=== PATIENT | male | born 1950 | race Caucasian/White ===

== ENCOUNTER 2016-12-23 18:03 | Emergency (ER) | payer OTHER ==
[2016-12-23 18:11] VITALS: BP 139/79; PULSE 114; RESP 22; TEMP 97.3; O2SAT 93
[2016-12-23] MEDS ORDERED: OXYMETAZOLINE 30 ML NASAL SPRAY ONE (18:15)
--- NOTE | 2016-12-23 18:27 | EDPHY ---
[id number] ILLNESS: 66-year-old male with a history of hereditary hemorrhagic telangiectasia presents with epistaxis for an hour and a half. He believes it started in his right naris but he has a deviated septum so there is blood in both nares. History of prior epistaxis, usually originating from the left naris. Previously treated with cautery +/- packing. The bleeding has currently stopped after using Afrin and placing a nasal clip. He denies lightheadedness, dizziness, or other complaints. REVIEW OF SYSTEMS: A complete 10-point review of systems was performed and is negative except for those items mentioned in the HPI. Past Medical/Surgical History: HHT. Social History: Nonsmoker. Smoking Status: Never smoked Physical Exam: General Appearance: Alert, pleasant and talkative Eyes: Pupils equal and round, no conjunctival pallor ENT, Mouth: Large nasal septal defect. Blood is present in both nares but there is no active bleeding. No blood in the posterior pharynx Neck: Normal inspection Respiratory: Lungs are clear to auscultation Cardiovascular: Regular rate and rhythm Gastrointestinal: Abdomen is soft and non- tender Neurological: A&O, nonfocal, normal gait Skin: Warm and dry Extremities: Normal inspection Psychiatric: Mood and affect normal Constitutional: Initial Vital Signs Temperature (C) 36.3 C 12/23/16 18:08 Heart Rate 114 H 12/23/16 18:08 Respiratory Rate 22 H 12/23/16 18:08 Blood Pressure 139/79 H 12/23/16 18:08 O2 Sat (%) 93 12/23/16 18:08 O2 Delivery Mode Room Air Allergies/Adverse Reactions: Sulfa (Sulfonamide Antibiotics) Allergy (Unknown, Verified 12/23/16 18:05) Rash SHRIMP Allergy (Severe, Uncoded 09/11/10 16:40) SWELLING; DIFFICULTY BREATHING Home Medications: Medication Instructions Recorded Lexapro 10 MG 03/06/15 Lisinopril 03/06/15 Medical Decision Making ED Course/Re-evaluation: The blood clots were cleared from the patient's nose by the patient blowing his nose. On my initial examination using nasal speculum, there was no active bleeding seen. I observed the patient in the emergency department for over 30 minutes and he had no recurrent bleeding. Given there was no source of bleeding found and he has no active bleeding, I will not pack his nose this evening. If the nosebleed recurs, he will use Afrin and then placed a nasal clip. If the bleeding persists he will return to the emergency department. Departure - Departure Disposition: Home, Routine, Self-Care Clinical Impression: Epistaxis Condition: Good Instructions: Nosebleed (ED) Additional Instructions: Follow up with Dr. Vivas for continued nosebleed concerns. Return to the emergency department for any serious worsening of condition. Referrals: Stanislav Vivas MD [Medical Doctor] - As per Instructions Report Scribed for: Marian Ocasio Report Scribed by: Jackson Mariscal Date of Report: 12/23/16 Time of Report: 18:53 Physician Review and Approval Statement: 12/23/16 18:54 Portions of this note were transcribed by a medical radiation tech. I personally performed a history, physical exam, medical decision making, and confirmed accuracy of information the transcribed note.
== END 2016-12-23 20:10 | disposition home or self-care (01) ==
DX: R04.0 Epistaxis (principal)

== ENCOUNTER 2017-03-30 20:51 | Emergency (ER) | payer OTHER ==
[2017-03-30 21:01] VITALS: TEMP 98.1
[2017-03-30] MEDS ORDERED: OXYMETAZOLINE 30 ML NASAL SPRAY ONE (21:42)
[2017-03-30] MEDS ORDERED: COCAINE HCL 4% 4 ML BTL TP ONE ×2 (21:42→21:49)
[2017-03-30] MEDS ORDERED: OXYMETAZOLINE 30 ML NASAL SPRAY EACHNARE ONE (21:49)
--- NOTE | 2017-03-30 22:50 | EDPHY ---
H & P Time Seen by Provider: 03/30/17 21:29 HPI/ROS: Chief complaint. Nose bleed HPI. 66-year-old male with history of hereditary hemorrhagic telangiectasia presents with nosebleed that began about 1 hour prior to arrival. Initially right side but with pressures bleeding out of the left side. He apparently has a perforated septum. He has not had any trauma. He has been bothered by allergies the last few days. Otherwise not sick. He scheduled for sclerotherapy by ENT in the next few weeks. He has had prior epistaxis. ROS Constitutional. no fever/chills, no weakness Eyes. no problems with vision ENT. Nose bleed Cardiovascular. no chest pain Respiratory. no shortness of breath, no cough Abdominal. no abdominal pain, no nausea/vomiting, no diarrhea . no problems urinating MS. no calf pain/swelling, no neck/back pain, no joint pain Skin. no rash Lymph. no swollen glands Neuro. no headache, no dizziness, no difficulty walking or with speech Past Medical/Surgical History: Hereditary hemorrhagic telangiectasia, hypertension, anxiety, angina Social History: , nonsmoker, no alcohol Smoking Status: Never smoked Physical Exam: General Appearance: Alert well-developed male moderate distress active nose bleed Eyes: Pupils equal and round no pallor or injection. ENT, blood in the posterior pharynx. Blood from both nares ease seems to be somewhat more on the right. Respiratory: There are no retractions, lungs are clear to auscultation. Cardiovascular: Regular rate and rhythm. Gastrointestinal: Abdomen is soft and nontender, no masses, bowel sounds normal. Neurological: Awake and alert, sensory and motor exams grossly normal. Skin: Warm and dry, no rashes. Musculoskeletal: Neck is supple nontender. Extremities symmetrical, full range of motion. Psychiatric: Patient is oriented X 3, there is no agitation. Constitutional: Initial Vital Signs Temperature (C) 36.7 C 03/30/17 20:59 Heart Rate 71 03/30/17 20:59 Respiratory Rate 20 03/30/17 20:59 Blood Pressure 164/95 H 03/30/17 20:59 O2 Sat (%) 97 03/30/17 20:59 O2 Delivery Mode Room Air Allergies/Adverse Reactions: Sulfa (Sulfonamide Antibiotics) Allergy (Unknown, Verified 03/30/17 20:58) Rash SHRIMP Allergy (Severe, Uncoded 03/30/17 20:58) SWELLING; DIFFICULTY BREATHING Home Medications: Medication Instructions Recorded Lexapro 10 MG 03/06/15 Lisinopril 03/06/15 Medical Decision Making Procedures: Clots were cleared from the nose by patient blowing. Afrin nose spray is instilled. Cotton balls soaked in cocaine solution or placed in both nares is nasal packing. There left for approximately 10 minutes and removed. Patient continues to bleed from both nares though it is less. Again right seems to be worse than left. Rhino rockets 5.5 cm are placed in both nares. The right is inflated with 5 cc normal saline. The left is insufflated with 4 cc normal saline. Patient tolerates the procedure well Observation no further bleeding. No blood coming down the posterior pharynx ED Course/Re-evaluation: Patient and family and I discussed treatment plan including criteria for return importance of follow-up and further evaluation. They expressed understanding and agreement Differential Diagnosis: Bilateral epistaxis in a patient with hereditary hemorrhagic telangiectasia. He is not on blood thinners. Now packed. No airway problems. - Data Points Medications Given: Discontinued Medications Cocaine HCl (Cocaine Hcl) 1 glenn TP EDNOW ONE Stop: 03/30/17 21:50 Last Admin: 03/30/17 22:07 Dose: 1 glenn Oxymetazoline HCl (Afrin Nasal [place]) 2 sprays EACHNARE EDNOW ONE Stop: 03/30/17 21:50 Last Admin: 03/30/17 21:49 Dose: 2 sprays Departure - Departure Disposition: Home, Routine, Self-Care Clinical Impression: Anterior epistaxis Condition: Good Instructions: Nosebleed (ED) Additional Instructions: Leave packing in until see Dr. Weathers. Call Dr. Weathers's office tomorrow morning to arrange follow-up and further evaluation. Cephalexin 1 pill twice daily while packing is in. return for worsening bleeding or symptoms Referrals: Mitchell Mujica MD [Primary Care Provider] - As per Instructions Shahriar Weathers MD [Medical Doctor] - 1-2 days without fail
[2017-03-30] MEDS ORDERED: CEPHALEXIN 500MG PREPACK#4 BTL TAKEHOME ONE (22:51)
[2017-03-30 23:05] VITALS: BP 144/90; PULSE 69; RESP 16; O2SAT 93
== END 2017-03-30 23:04 | disposition home or self-care (01) ==
PROC: 2Y41X5Z Packing of Nasal Region using Packing Material (ICD-10-PCS; principal; 2017-03-30)
DX: R04.0 Epistaxis (principal)

== ENCOUNTER 2017-07-09 11:28 | Day surgery (SDC) | payer OTHER ==
[~2017-07-09 11:28] MED LIST: BACITRACIN ZINC 14.2 GM OINTTUBE TP ONE; LIDO/EPI 1% **Not for Epidural 20 ML MDV ONE; OXYMETAZOLINE 30 ML NASAL SPRAY ONE; SURGIFLO MATRIX KIT WITH THROMBIN TP ONE
[2017-07-09] MEDS ORDERED: LR 1,000 ML IV ONE (12:09)
[2017-07-09] MEDS ORDERED: LIDOCAINE 1% 2 ML INJ ID PRN (12:09)
[2017-07-09] MEDS ORDERED: LABETALOL HCL 50 MG/10 ML SYR IVP ONE (12:50)
[2017-07-09] MEDS ORDERED: MIDAZOLAM 2 MG/2 ML VIAL IVP ONE (12:50)
[2017-07-09] MEDS ORDERED: OXYMETAZOLINE 30 ML NASAL SPRAY EACHNARE ONE (12:54)
--- NOTE | 2017-07-09 12:54 | PDANEPAE ---
ANE History of Present Illness cauterization nosebleed ANE Past Medical History - Cardiovascular History Hx Hypertension: Yes Hx Arrhythmias: No Hx Chest Pain: No Hx Coronary Artery / Peripheral Vascular Disease: No Hx CHF / Valvular Disease: No Hx Palpitations: No Cardiovascular History Comment: pcp monitors bp meds - Pulmonary History Hx COPD: No Hx Asthma/Reactive Airway Disease: No Hx Recent Upper Respiratory Infection: No Hx Oxygen in Use at Home: No Hx Sleep Apnea: No Sleep Apnea Screening Result - Last Documented: Positive Pulmonary History Comment: tessa triggers. 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 wears glasses - Chronic Pain History Chronic Pain: No - Surgical History Prior Surgeries: na ANE Review of Systems - Exercise capacity Exercise capacity: >=4 METS METS (RN): 4 METS ANE Patient History - Allergies Allergies/Adverse Reactions: Sulfa (Sulfonamide Antibiotics) Allergy (Unknown, Verified 06/19/17 15:44) Rash SHRIMP Allergy (Severe, Uncoded 06/19/17 15:44) SWELLING; DIFFICULTY BREATHING - Home Medications Home Medications: Lexapro 10 MG 03/06/15 [Last Taken 07/08/17 21:00] Lisinopril 03/06/15 [Last Taken 07/08/17 21:00] Metoprolol Succinate 04/10/17 [Last Taken 07/08/17 15:00] LORAZEPAM PRN 06/19/17 [Last Taken 2 Months Ago] - NPO status NPO Status: no food or drink >8 hours NPO Since - Liquids (Date): 07/09/17 NPO Since - Liquids (Time): 19:30 NPO Since - Solids (Date): 07/08/17 NPO Since - Solids (Time): 19:30 - Anes Hx Anes Hx: no prior problems - Smoking Hx Smoking Status: Never smoked - Alcohol Use Alcohol Use: None - Family Anes Hx Family Anes Hx: none Family Hx Anesthesia Complications: none ANE Labs/Vital Signs - Vital Signs Blood Pressure: 205/105 Heart Rate: 65 Respiratory Rate: 20 O2 Sat (%): 97 Height: 180.34 cm Weight: 89.358 kg ANE Physical Exam - Airway Neck exam: FROM Mallampati Score: Class 3 Mouth exam: normal dental/mouth exam - Pulmonary Pulmonary: no respiratory distress - Cardiovascular Cardiovascular: regular rate and rhythym - ASA Status ASA Status: II ANE Anesthesia Plan Anesthesia Plan: general endotracheal anesthesia (preop bp high, but pt asymptomatic. )
--- NOTE | 2017-07-09 12:57 | PDGENHP ---
History & Physical Chief Complaint: HHT Epistaxis History of Present Illness: HHT, Chronic epistaxis Pertinent Past, Social, Family History: Reviewed, unchanged Relevant Physical Exam: Epistaxis, septal perf Cardiorespiratory Assessment: A/P: Good for OR. Outpatient.
[2017-07-09] MEDS ORDERED: LABETALOL HCL 5 MG/ML 20 ML MDV IV ONE (13:00)
[2017-07-09 13:06] VITALS: PULSE 80
[2017-07-09] MEDS ORDERED: PROPOFOL 200 MG/20 ML VIAL ONE (13:17)
[2017-07-09] MEDS ORDERED: LIDOCAINE 2% 5 ML SDV ONE (13:17)
[2017-07-09] MEDS ORDERED: fentaNYL 100 MCG/2 ML INJ ONE (13:17)
[2017-07-09] MEDS ORDERED: SODIUM TETRADECYL SULFATE 3% 60 MG/2 ML VIAL IV ONE (13:30)
--- NOTE | 2017-07-09 14:36 | POSTOPPROG ---
Post Op Note Date of Operation: 07/09/17 Surgeon: Shahriar Weathers Anesthesia: GET(General Endotracheal) Pre-op Diagnosis: HHT epistaxis Post-op Diagnosis: HHT epistaxis Indication: HHT epistaxis Procedure: 2ml 3% Sotradecol telangectasia injection - epistaxis control Inf/Abcess present in the surg proc area at time of surgery?: No Depth: Deep Incisional (Fascial) EBL: Minimal Complications: NONE Specimen(s): NONE
[2017-07-09] MEDS ORDERED: PROMETHAZINE HCL 25 MG/ML INJ IVP PRN (14:41)
[2017-07-09] MEDS ORDERED: ALBUTEROL 3 ML DEYVIAL IH PRN (14:41)
[2017-07-09] MEDS ORDERED: ONDANSETRON 4 MG/2 ML VIAL IVP PRN (14:41)
[2017-07-09] MEDS ORDERED: fentaNYL 100 MCG/2 ML INJ IVP PRN ×2 (14:41)
[2017-07-09] MEDS ORDERED: NALOXONE HCL 0.4 MG/ML INJ IVP PRN (14:41)
[2017-07-09] MEDS ORDERED: MEPERIDINE 25 MG/ML SYR IVP PRN (14:41)
[2017-07-09] MEDS ORDERED: LABETALOL HCL 5 MG/ML 20 ML MDV ONE (15:21)
[2017-07-09] MEDS: LABETALOL HCL 50 MG/10 ML SYR IVP PRN ×3 (15:23→16:04)
[2017-07-09 15:38] VITALS: TEMP 97.7
[2017-07-09 16:32] VITALS: BP 170/89; RESP 16; O2SAT 91
== END 2017-07-09 16:35 | disposition home or self-care (01) ==
LOC: FSGY 11:28
PROVIDERS: ATTEND Otolaryngology
PROC: 095K4ZZ Destruction of Nasal Mucosa and Soft Tissue, Percutaneous Endoscopic Approach (ICD-10-PCS; principal; 2017-07-09 13:00)
DX: I78.0 Hereditary hemorrhagic telangiectasia (principal)
CPT/HCPCS: J2250; J2704; J3010; J3490

== ENCOUNTER → 2018-10-06 | Outpatient (CLI) | payer OTHER | LOC: FIMAGING 15:13 | PROVIDERS: ATTEND Psychiatry & Neurology Neurology | DX: G31.9 Degenerative disease of nervous system, unspecified (principal); R94.02 Abnormal brain scan; R27.9 Unspecified lack of coordination ==